=== PATIENT | male | born 2000 | race Caucasian/White ===

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

== ENCOUNTER 2020-06-21 12:38 | Emergency (ER) | payer BC ==
[~2020-06-21] VITALS: Ht 172.7 cm; Wt 75.0 kg
[~2020-06-21 12:38] MED LIST: PERCOCET 325 MG1 TA2 PO
[2020-06-21 12:51] VITALS: TEMP 99.6
[2020-06-21 15:05] LABS: COLLECTION METHOD CLEAN CATCH
[2020-06-21 15:08] LABS: BASO % 0.2 % (0.0-2.0); EOS % 0.4 % (0-4.0); GRAN # 7.4 (1.4-6.5); GRAN % 75.5 % (42.2-75.2); HEMOGLOBIN 15.7 g/dl (12.5-16.1); LYMPH # 1.6 (1.2-3.4); LYMPH % 16.4 % (20.0-51.0); MEAN CELL VOLUME 82 fl (80.0-95.0); MEAN CORPUSCULAR HEMOGLOBIN 28 pg (26.0-32.0); MEAN CORPUSCULAR HGB CONC 34 g/dl (33.0-37.0); MONO # 0.7 (0.1-0.6); MONO % 7.3 % (1.7-9.3); PLATELET COUNT 295 K/mm3 (130-400); RED BLOOD COUNT 5.64 M/mm3 (4.20-5.60); REDCELL DISTRIBUTION WIDTH-CV 12.4 % (11.5-14.5)
[2020-06-21 15:11] LABS: PH 6 (5-8); SQUAMOUS EPITHELIAL None Seen /hpf; URINE APPEARANCE Clear; URINE BACTERIA Rare /hpf; URINE BILIRUBIN Negative (NEGATIVE); URINE BLOOD Negative (NEGATIVE); URINE COLOR Straw; URINE GLUCOSE Negative (NEGATIVE); URINE KETONE Negative (NEGATIVE); URINE LEUKOCYTE ESTERASE Negative (NEGATIVE); URINE NITRATE Negative (NEGATIVE); URINE PROTEIN(semi-quant) Negative (NEGATIVE); URINE RBC None Seen /hpf; URINE UROBILINOGEN Negative (NEGATIVE)
[2020-06-21 15:23] LABS: ALANINE AMINOTRANSFERASE 13 U/L (4-49); ALBUMIN 4.7 gm/dL (3.5-5.0); ALKALINE PHOSPHATASE 84 U/L (50-136); ANION GAP 9 mmol/L (7-16); AST,SGOT 21 U/L (15-37); BILIRUBIN,TOTAL 0.9 mg/dL (0.0-1.0); BLOOD UREA NITROGEN 8 mg/dL (9-20); CALCIUM 10.1 mg/dL (8.4-10.2); CARBON DIOXIDE 26 mmol/L (22-30); CHLORIDE 102 mmol/L (98-107); CREATININE, serum 1.08 (0.66-1.25); GLUCOSE 94 mg/dL (74-106); SODIUM 138 mmol/L (137-145)
[2020-06-21 15:26] LABS: C-REACTIVE PROTEIN < 0.5 mg/dL (0.0-0.9)
[2020-06-21 15:28] LABS: ERYTHROCYTE SEDIMENTATION RATE 1 mm/hr (0-15)
[2020-06-21 15:37] LABS: TROPONIN-I < 0.012 ng/mL (0.000-0.035)
[2020-06-21 16:00] VITALS: BP 111/72; PULSE 83
== END 2020-06-21 16:00 | disposition home or self-care (01) ==
LOC: COL.ER 12:38
PROVIDERS: Nurse Practitioner
DX: R20.2 Paresthesia of skin (principal)
CPT/HCPCS: J2060; J7030

== ENCOUNTER → 2020-07-15 | Outpatient (CLI) | payer BC | LOC: COL.RAD | DX: R20.0 Anesthesia of skin (principal); R20.2 Paresthesia of skin | CPT/HCPCS: A9585 ==

== ENCOUNTER 2020-08-05 12:06 | Outpatient (CLI) | payer BC ==
[~2020-08-05] VITALS: Ht 172.7 cm; Wt 71.7 kg
[2020-08-05] VITALS (7 sets, daily range): BP systolic 111–145; BP diastolic 58–81; PULSE 50–87
[~2020-08-05 12:06] MED LIST changes: +VITAMIN D31000 I1 PO
[2020-08-05 14:58] LABS: CSF COLOR COLORLESS
[2020-08-05 14:59] LABS: CSF APPEARANCE CLEAR; CSF RBC 49 /mm3 (0-0)
--- NOTE | 2020-08-05 15:00 | NUR ---
PT READY FOR DISCHARGE. HE HAS BEEN DRINKING WATER WITH NO PROBLEM. HE VERBALIZES UNDERSTANDING OF DC/FU INSTRUCTIONS, DENIES QUESTIONS. I AMBULATED WITH PT TO EXIT.
[2020-08-05 15:41] LABS: CSF MONONUCLEAR 100 % (70-100); CSF POLYMORPHONUCLEAR 0 % (0-6)
[2020-08-05 17:51] LABS: GLUCOSE,CSF 54 mg/dL (40-70); TOTAL PROTEIN,CSF 44 mg/dL (15-45)
== END 2020-08-05 19:01 | disposition home or self-care (01) ==
LOC: COL.RAD 12:06
PROVIDERS: Psychiatry & Neurology Neurology
DX: G37.9 Demyelinating disease of central nervous system, unspecified (principal)

== ENCOUNTER 2020-08-06 19:27 | Emergency (ER) | payer BC ==
[~2020-08-06] VITALS: Ht 172.7 cm; Wt 71.8 kg
[2020-08-06 19:34] VITALS: TEMP 98.6
[2020-08-06 22:07] VITALS: BP 122/65; PULSE 64
== END 2020-08-06 22:15 | disposition home or self-care (01) ==
LOC: COL.ER 19:27
DX: G44.40 Drug-induced headache, not elsewhere classified, not intractable (principal); T41.3X5A Adverse effect of local anesthetics, initial encounter; Y83.8 Other surgical procedures as the cause of abnormal reaction of the patient, or of later complication, without mention of misadventure at the time of the procedure
CPT/HCPCS: J7030